=== PATIENT | male | born 1935 | race American Indian/Alaskan Native ===

== ENCOUNTER 2016-12-30 14:11 | Inpatient (IN) | payer MEDICARE, MEDICAID, OTHER ==
[2016-12-30] MEDS ORDERED: Polyethylene Glycol 3350 Powder 17 GM Packet PO PRN (14:41)
[2016-12-30] MEDS ORDERED: Acetaminophen 325 MG Tab PO PRN (14:41)
[2016-12-30] MEDS ORDERED: Ondansetron 4 MG/2 ML SDV IVPUSH PRN (14:41)
[2016-12-30] MEDS: Levofloxacin/Dextrose 5%-Water 500 MG in Premix Bag 1 BAG IV SCH (15:51)
[2016-12-30] MEDS: Sodium Chloride 0.9% 1,000 ML IV SCH (15:52)
--- NOTE | 2016-12-30 16:01 | PCM.HP ---
H&P History of Present Illness - General Date of Service: 12/30/16 Admit Problem/Dx: Admission Diagnosis/Problem Admission Diagnosis/Problem UTI, Urinary tract infectious disease Source of Information: Patient, Provider (Dr. Kennedy) - History of Present Illness Initial Comments - Free Text/Narative: 81-year-old male was the best medical history of diabetes mellitus type 2, hyperlipidemia, chronic kidney disease stage IV, lower extremity edema, cataract , anemia, cardiomyopathy, essential hypertension, also arthritis, diabetic peripheral neuropathy of the feet, hypothyroidism, presented as a direct admission from [facility] clinic in [place], [place]. Dr. Kennedy called me and reported to me that patient has been getting weak for the last 2 weeks with multiple clinic visits and today was found to have P urea and WBC of 18,000, sodium 124. patient is poor historian and he denies any symptoms stating that he feels okay. However his daughter reported that for the last 2 weeks he has been more sleepy than usual and more tired. He has been urinating more often but not complaining of dysuria or abdominal pain. She reported chronic cough. She denies nausea, vomiting, chest pain, shortness breath, diarrhea. She stated that when they got him out of bed yesterday they found maggots in his bed and they don't know where it came from. Chest x-ray at [facility] clinic reported nodule versus mass in the left upper lobe. UA on 12/30/69: Large urine blood, large leukocyte esterase. Laboratory workup on 12/29/69 adela: . Total bilirubin 0.60. Alkaline phosphatase because 121. WBC 18.4 with left shift hemoglobin 13.1. Platelet 415. Blood glucose 374. ESR 28. Creatinine 2.4. Estimated GFR 28. Sodium 124. Potassium 3.8. Calcium 8.6. Albumin 3.2. - Related Data Allergies/Adverse Reactions: Allergies Allergy/AdvReac Type Severity Reaction Status Date / Time No Known Allergies Allergy Verified 12/30/16 14:37 Home Medications: Home Meds Aspirin [Ecotrin] 81 mg PO DAILY 06/07/13 [History] Fenofibrate,Micronized [Fenofibrate] 1 cap PO DAILY 06/07/13 [History] Pioglitazone [Actos] 30 mg PO DAILY 06/07/13 [History] Simvastatin [Zocor] 20 mg PO BEDTIME 06/07/13 [History] Diclofenac Sodium [Voltaren 1% Gel] 2 gm TOP QID 12/30/16 [History] Insulin Detemir [Levemir] 25 unit SUBCUT BEDTIME 12/30/16 [History] Lisinopril 10 mg PO DAILY 12/30/16 [History] glipiZIDE [Glucotrol XL] 5 mg PO DAILY 12/30/16 [History] metFORMIN [Glucophage] 500 mg PO DAILY 12/30/16 [History] Past Medical History Cardiovascular History: Reports: High Cholesterol, Hypertension Respiratory History: Reports: COPD Endocrine/Metabolic History: Reports: Diabetes, Type II - Infectious Disease History Infectious Disease History: Reports: Chicken Pox, Shingles Social & Family History - Family History Family Medical History: Noncontributory - Tobacco Use Smoking Status *Q: Former Smoker Used Tobacco, but Quit: Yes Month Tobacco Last Used: unknown - Caffeine Use Caffeine Use: Reports: Coffee - Alcohol Use Days Per Week of Alcohol Use: 0 - Recreational Drug Use Recreational Drug Use: No H&P Review of Systems - Review of Systems: Review Of Systems: See Below General: Denies: Fever, Weight Loss, Weight Gain HEENT: Reports: No Symptoms Pulmonary: Reports: No Symptoms Cardiovascular: Reports: No Symptoms Gastrointestinal: Reports: No Symptoms Genitourinary: Denies: Dysuria, Hematuria, Flank Pain Musculoskeletal: Reports: No Symptoms Skin: Reports: No Symptoms Psychiatric: Reports: No Symptoms Neurological: Reports: No Symptoms Hematologic/Lymphatic: Reports: No Symptoms Immunologic: Reports: No Symptoms Exam - Exam Exam: See Below - Vital Signs Vital Signs: Last Vital Signs Temp 36.1 C 12/30/16 14:41 Pulse 102 H 12/30/16 14:41 Resp 20 12/30/16 14:41 BP 107/64 12/30/16 14:41 Pulse Ox 99 12/30/16 14:41 Weight: 89.363 kg - Exam General: Alert, Oriented (to person and place only), Cooperative. No: Moderate Distress, Severe Distress, Sedated, Lethargic, Obtunded HEENT: Conjunctiva Clear, EACs Clear, EOMI, Hearing Intact, Mucosa Moist & [place] , Nares Patent, Normal Nasal Septum, Posterior Pharynx Clear, Pupils Equal, Pupils Reactive, TMs Clear Neck: Supple, Trachea Midline. No: JVD Lungs: Clear to Auscultation, Normal Respiratory Effort. No: Decreased Breath Sounds, Crackles, Rales, Wheezing Cardiovascular: Regular Rate, Regular Rhythm GI/Abdominal Exam: Normal Bowel Sounds, Soft, Non-Tender, No Organomegaly, No Distention, No Abnormal Bruit, No Mass. No: Distended, Guarding, Rigid, Rebound (Male) Exam: No Hernia, Normal Inspection. No: Scrotal Swelling, Urethral Discharge Rectal (Males) Exam: Deferred Back Exam: Normal Inspection, Full Range of Motion. No: CVA Tenderness (L), CVA Tenderness (R) Extremities: Normal Inspection, Normal Range of Motion, Non-Tender, No Pedal Edema, Normal Capillary Refill Skin: Warm, Dry, Intact. No: Wound, Incision, Decubitis Neurological: Cranial Nerves Intact Neuro Extensive - Mental Status: Alert, Normal Mood/Affect Neuro Extensive - Motor, Sensory, Reflexes: CN II-XII Intact Psychiatric: Alert *Q Meaningful Use (ADM) - VTE *Q VTE Criteria *Q: - Stroke *Q Stroke Criteria *Q: - AMI *Q AMI Criteria *Q: - Problem List (1) Sepsis SNOMED Code(s): 48632763 ICD Code: A41.9 - SEPSIS, UNSPECIFIED ORGANISM Status: Acute Priority: High Current Visit: Yes (2) Complicated UTI (urinary tract infection) SNOMED Code(s): 18329279 ICD Code: N39.0 - URINARY TRACT INFECTION, SITE NOT SPECIFIED Status: Acute Priority: High Current Visit: Yes (3) Diabetes mellitus type 2 in obese SNOMED Code(s): 25937928 ICD Code: E11.69 - TYPE 2 DIABETES MELLITUS WITH OTHER SPECIFIED COMPLICATION ; E66.9 - OBESITY, UNSPECIFIED Status: Chronic Current Visit: Yes (4) HTN (hypertension) SNOMED Code(s): 82432652 ICD Code: I10 - ESSENTIAL (PRIMARY) HYPERTENSION Status: Chronic Current Visit: Yes (5) CKD (chronic kidney disease) stage 4, GFR 15-29 ml/min SNOMED Code(s): 928576845 ICD Code: N18.4 - CHRONIC KIDNEY DISEASE, STAGE 4 (SEVERE) Status: Chronic Current Visit: Yes (6) Hyponatremia SNOMED Code(s): 03369867 ICD Code: E87.1 - HYPO-OSMOLALITY AND HYPONATREMIA Status: Acute Priority : High Current Visit: Yes (7) Hyperlipidemia SNOMED Code(s): 76683110 ICD Code: E78.5 - HYPERLIPIDEMIA, UNSPECIFIED Status: Chronic Current Visit: Yes (8) Peripheral neuropathy SNOMED Code(s): 617776109 ICD Code: G62.9 - POLYNEUROPATHY, UNSPECIFIED Status: Chronic Current Visit: Yes (9) Hypothyroidism SNOMED Code(s): 85356959 ICD Code: E03.9 - HYPOTHYROIDISM, UNSPECIFIED Status: Chronic Current Visit: Yes Problem List Initiated/Reviewed/Updated: Yes Orders Last 24hrs: Active Orders 24 hr Category Date Time Status Patient Status [ADT] Routine ADT 12/30/16 14:41 Active Antiembolic Devices [RC] PER UNIT ROUTINE Care 12/30/16 14:45 Active Blood Glucose Check, Bedside [RC] QIDACANDBED Care 12/30/16 14:41 Active Height and Weight [RC] DAILY Care 12/30/16 14:41 Active Intake and Output [RC] Q6H Care 12/30/16 14:43 Active May Shower [RC] ASDIRECTED Care 12/30/16 14:41 Active Notify Provider Vital Signs [RC] ASDIRECTED Care 12/30/16 14:44 Active Oxygen Therapy [RC] PRN Care 12/30/16 14:41 Active Up ad Manisha [RC] ASDIRECTED Care 12/30/16 14:41 Active VTE/DVT Education [RC] PER UNIT ROUTINE Care 12/30/16 14:41 Active Vital Signs [RC] Q4H Care 12/30/16 14:41 Active OT Evaluation and Treatment [CONS] Routine Cons 12/30/16 14:41 Active PT Evaluation and Treatment [CONS] Routine Cons 12/30/16 14:41 Active Consistent Carbohydrate Diet [DIET] Diet 12/30/16 Breakfast Active C-REACTIVE PROTEIN [CHEM] Routine Lab 12/30/16 13:10 Received CBC WITH AUTO DIFF [HEME] AM Lab 12/31/16 05:11 Ordered COMPREHENSIVE METABOLIC PN,CMP [CHEM] AM Lab 12/31/16 05:11 Ordered CRP [C-REACTIVE PROTEIN] [CHEM] AM Lab 12/31/16 05:11 Ordered CULTURE BLOOD [BC] Stat Lab 12/30/16 15:05 Received CULTURE BLOOD [BC] Stat Lab 12/30/16 15:10 Received CULTURE URINE [RM] Stat Lab 12/30/16 14:41 Uncollected MAGNESIUM [CHEM] AM Lab 12/31/16 05:11 Ordered PHOSPHORUS [CHEM] AM Lab 12/31/16 05:11 Ordered Acetaminophen [Tylenol] Med 12/30/16 14:41 Active 650 mg PO Q4H PRN Aspirin [Halfprin] Med 12/31/16 09:00 Active 81 mg PO DAILY Fenofibrate,Micronized [Fenofibrate] Med 12/31/16 09:00 Pending 1 cap PO DAILY Heparin Sodium Med 12/30/16 21:00 Active 5,000 units SUBCUT BID Insulin Aspart [NovoLOG] Med 12/30/16 17:00 Active See Protocol SUBCUT QIDACANDBED Insulin Detemir [Levemir] Med 12/30/16 21:00 Active 25 unit SUBCUT BEDTIME Levofloxacin/Dextrose 5%-Water [Levaquin in D5W 500 MG/ Med 12/30/16 16:00 Active 100 ML] 500 mg Premix Bag 1 bag IV Q24H Lisinopril [Prinivil] Med 12/31/16 09:00 Active 10 mg PO DAILY Ondansetron [Zofran] Med 12/30/16 14:41 Active 4 mg IVPUSH Q6H PRN Pioglitazone [Actos] Med 12/31/16 09:00 Active 30 mg PO DAILY Polyethylene Glycol 3350 [MiraLAX] Med 12/30/16 14:41 Active 17 gm PO DAILY PRN Simvastatin [Zocor] Med 12/30/16 21:00 Active 20 mg PO BEDTIME Sodium Chloride 0.9% [Normal Saline] 1,000 ml Med 12/30/16 14:45 Active IV ASDIRECTED Antiembolic Hose [OM.PC] Per Unit Routine Oth 12/30/16 14:45 Ordered Blood Culture x2 Reflex Set [OM.PC] Stat Oth 12/30/16 14:41 Ordered Medication Orders Acetaminophen (Tylenol) 650 mg PO Q4H PRN PRN Reason: Pain (Mild 1-3)/fever Aspirin (Halfprin) 81 mg PO DAILY JEY Heparin Sodium (Porcine) (Heparin Sodium) 5,000 units SUBCUT BID JEY Sodium Chloride (Normal Saline) 1,000 mls @ 125 mls/hr IV ASDIRECTED JEY Levofloxacin/Dextrose 500 mg/ (Premix) 100 mls @ 100 mls/hr IV Q24H JEY Insulin Aspart (Novolog) 0 unit SUBCUT QIDACANDBED JEY PRN Reason: Protocol Insulin Detemir (Levemir) 25 unit SUBCUT BEDTIME JEY Lisinopril (Prinivil) 10 mg PO DAILY JEY Non-Formulary Medication (Fenofibrate,Micronized [Fenofibrate]) 1 cap PO DAILY JEY Ondansetron HCl (Zofran) 4 mg IVPUSH Q6H PRN PRN Reason: Nausea/Vomiting Pioglitazone HCl (Actos) 30 mg PO DAILY JEY Polyethylene Glycol (Miralax) 17 gm PO DAILY PRN PRN Reason: Constipation Simvastatin (Zocor) 20 mg PO BEDTIME JEY Assessment/Plan Comment:: Assessment and plan Sepsis, source of infection is possibly urinary tract Elevated WBC and rapid heart rate -ordered blood and urine cx start levaquin IV -IVF infusion of NS at 125 cc/h UTI complicated plan as above Hyponatremia treat sepsis IVF Generalized weakness PT adn OP eval and treamtment Diabetes mellitus type 2 hold glipizide and metformin due to kidney disease continue pioglitazone Continue Levemir -sliding scale insulin, high dose protocol Essential Hypertension Continue lisinopril Chronic kidney disease creatinine at baseline avoid nephrotoxic meds Hypothyroidism continue lenvothyroxin Hyperlipidemia continue simvastatin Heparin for DVT prophylaxis He is full code
[2016-12-30] MEDS: Insulin Aspart 100 Units/ML 3 ML Pen SUBCUT SCH ×2 (17:30→21:15)
[2016-12-30] MEDS ORDERED: Insulin Detemir 100 Units/ML 3 ML Pen SUBCUT SCH (21:00)
[2016-12-30] MEDS: Heparin Sodium 5,000 Units/ML Vial SUBCUT SCH (21:13)
[2016-12-30] MEDS: Simvastatin 10 MG Tab PO SCH (21:15)
[2016-12-31] MEDS: Sodium Chloride 0.9% 1,000 ML IV SCH ×2 (01:07→08:48)
[2016-12-31] MEDS: Insulin Aspart 100 Units/ML 3 ML Pen SUBCUT SCH ×4 (08:01→21:19)
[2016-12-31] MEDS: Lisinopril 10 MG Tab PO SCH (08:46)
[2016-12-31] MEDS: Aspirin 81 MG Tab.EC PO SCH (08:46)
[2016-12-31] MEDS: Heparin Sodium 5,000 Units/ML Vial SUBCUT SCH ×2 (08:48→20:41)
[2016-12-31] MEDS ORDERED: FENOFIBRATE MICRONIZED PO SCH (09:00)
--- NOTE | 2016-12-31 13:13 | PCM.PN ---
- General Info Date of Service: 12/31/16 Admission Dx/Problem (Free Text): Admission Diagnosis/Problem Admission Diagnosis/Problem UTI, Urinary tract infectious disease Subjective Update: Patient stated that his feelings better. He has no complaints. He denies fever, chills, nausea, vomiting, shortness breath, chest pain, abdominal pain, dysuria , urinary frequency. Nurse reported that patient has been incontinent. - Patient Data Vitals - Most Recent: Last Vital Signs Temp 36.6 C 12/31/16 11:23 Pulse 88 12/31/16 11:23 Resp 20 12/31/16 11:23 BP 79/39 L 12/31/16 11:23 Pulse Ox 94 L 12/31/16 11:23 Weight - Most Recent: 90.265 kg I&O - Last 24 Hours: Intake & Output 12/30/16 12/31/16 12/31/16 22:59 06:59 14:59 Intake Total 896 1195 2427 Balance 896 1195 2427 Lab Results Last 24 Hours: Laboratory Results - last 24 hr 12/30/16 12/30/16 12/30/16 Range/Units 13:10 16:59 20:48 WBC (5.0-10.0) 10^3/uL RBC (4.6-6.2) 10^6/uL Hgb (14.0-18.0) g/dL Hct (40.0-54.0) % MCV (80-100) fL MCH (27.0-34.0) pg MCHC (33.0-35.0) g/dL Plt Count (150-450) 10^3/uL Neut % (Auto) (42.2-75.2) % Lymph % (Auto) (20.5-50.1) % [place] % (Auto) (2-8) % Eos % (Auto) (1.0-3.0) % Baso % (Auto) (0.0-1.0) % Sodium (135-145) mmol/L Potassium (3.6-5.0) mmol/L Chloride (101-111) mmol/L Carbon Dioxide (21.0-31.0) mmol/L Anion Gap BUN (7-18) mg/dL Creatinine (0.6-1.3) mg/dL Est Cr Clr Drug Dosing mL/min Estimated GFR (MDRD) BUN/Creatinine Ratio Glucose (74-105) mg/dL POC Glucose 322 H 197 H (83-110) mg/dl Calcium (8.4-10.2) mg/dl Phosphorus (2.5-4.6) mg/dL Magnesium (1.8-2.5) mg/dL Total Bilirubin (0.2-1.0) mg/dL AST (10-42) IU/L ALT (10-60) IU/L Alkaline Phosphatase (42-121) IU/L C-Reactive Protein 12.9 H (0.0-1.3) mg/dL Total Protein (6.7-8.2) g/dl Albumin (3.2-5.5) g/dl Globulin Albumin/Globulin Ratio 12/31/16 12/31/16 12/31/16 Range/Units 06:15 06:15 06:15 WBC 12.0 H (5.0-10.0) 10^3/uL RBC 4.15 L (4.6-6.2) 10^6/uL Hgb 11.8 L (14.0-18.0) g/dL Hct 35.6 L (40.0-54.0) % MCV 85.8 (80-100) fL MCH 28.4 (27.0-34.0) pg MCHC 33.1 (33.0-35.0) g/dL Plt Count 387 (150-450) 10^3/uL Neut % (Auto) 75.5 H (42.2-75.2) % Lymph % (Auto) 18.8 L (20.5-50.1) % [place] % (Auto) 5.6 (2-8) % Eos % (Auto) 0.1 L (1.0-3.0) % Baso % (Auto) 0.0 (0.0-1.0) % Sodium 130 L (135-145) mmol/L Potassium 3.9 (3.6-5.0) mmol/L Chloride 96 L (101-111) mmol/L Carbon Dioxide 21.0 (21.0-31.0) mmol/L Anion Gap 16.9 BUN 75 H (7-18) mg/dL Creatinine 2.5 H (0.6-1.3) mg/dL Est Cr Clr Drug Dosing 23.57 mL/min Estimated GFR (MDRD) 25 BUN/Creatinine Ratio 30.00 Glucose 188 H (74-105) mg/dL POC Glucose (83-110) mg/dl Calcium 8.2 L (8.4-10.2) mg/dl Phosphorus 3.4 (2.5-4.6) mg/dL Magnesium 1.8 (1.8-2.5) mg/dL Total Bilirubin 0.8 (0.2-1.0) mg/dL AST 13 (10-42) IU/L ALT 9 L (10-60) IU/L Alkaline Phosphatase 69 (42-121) IU/L C-Reactive Protein 9.9 H (0.0-1.3) mg/dL Total Protein 7.3 (6.7-8.2) g/dl Albumin 2.1 L (3.2-5.5) g/dl Globulin 5.2 Albumin/Globulin Ratio 0.40 12/31/16 12/31/16 Range/Units 07:34 10:55 WBC (5.0-10.0) 10^3/uL RBC (4.6-6.2) 10^6/uL Hgb (14.0-18.0) g/dL Hct (40.0-54.0) % MCV (80-100) fL MCH (27.0-34.0) pg MCHC (33.0-35.0) g/dL Plt Count (150-450) 10^3/uL Neut % (Auto) (42.2-75.2) % Lymph % (Auto) (20.5-50.1) % [place] % (Auto) (2-8) % Eos % (Auto) (1.0-3.0) % Baso % (Auto) (0.0-1.0) % Sodium (135-145) mmol/L Potassium (3.6-5.0) mmol/L Chloride (101-111) mmol/L Carbon Dioxide (21.0-31.0) mmol/L Anion Gap BUN (7-18) mg/dL Creatinine (0.6-1.3) mg/dL Est Cr Clr Drug Dosing mL/min Estimated GFR (MDRD) BUN/Creatinine Ratio Glucose (74-105) mg/dL POC Glucose 206 H 233 H (83-110) mg/dl Calcium (8.4-10.2) mg/dl Phosphorus (2.5-4.6) mg/dL Magnesium (1.8-2.5) mg/dL Total Bilirubin (0.2-1.0) mg/dL AST (10-42) IU/L ALT (10-60) IU/L Alkaline Phosphatase (42-121) IU/L C-Reactive Protein (0.0-1.3) mg/dL Total Protein (6.7-8.2) g/dl Albumin (3.2-5.5) g/dl Globulin Albumin/Globulin Ratio Med Orders - Current: Current Medications Acetaminophen (Tylenol) 650 mg PO Q4H PRN PRN Reason: Pain (Mild 1-3)/fever Aspirin (Halfprin) 81 mg PO DAILY [facility] Last Admin: 12/31/16 08:46 Dose: 81 mg Heparin Sodium (Porcine) (Heparin Sodium) 5,000 units SUBCUT BID [facility] Last Admin: 12/31/16 08:48 Dose: 5,000 units Levofloxacin/Dextrose 500 mg/ (Premix) 100 mls @ 100 mls/hr IV Q24H [facility] Last Admin: 12/30/16 15:51 Dose: 100 mls/hr Insulin Aspart (Novolog) 0 unit SUBCUT QIDACANDBED [facility] PRN Reason: Protocol Last Admin: 12/31/16 11:55 Dose: 6 units Insulin Detemir (Levemir) 25 unit SUBCUT BEDTIME [facility] Last Admin: 12/30/16 21:14 Dose: 25 units Lisinopril (Prinivil) 10 mg PO DAILY [facility] Last Admin: 12/31/16 08:46 Dose: 10 mg Non-Formulary Medication (Fenofibric Acid (Choline) [Fenofibric Acid]) 45 mg PO DAILY [facility] Ondansetron HCl (Zofran) 4 mg IVPUSH Q6H PRN PRN Reason: Nausea/Vomiting Pioglitazone HCl (Actos) 30 mg PO DAILY [facility] Last Admin: 12/31/16 08:48 Dose: 30 mg Polyethylene Glycol (Miralax) 17 gm PO DAILY PRN PRN Reason: Constipation Simvastatin (Zocor) 20 mg PO BEDTIME [facility] Last Admin: 12/30/16 21:15 Dose: 20 mg Discontinued Medications Sodium Chloride (Normal Saline) 1,000 mls @ 125 mls/hr IV ASDIRECTED JEY Stop: 12/31/16 10:00 Last Infusion: 12/31/16 11:48 Dose: 125 mls/hr Non-Formulary Medication (Fenofibrate,Micronized [Fenofibrate]) 1 cap PO DAILY JEY - Exam General: Alert, Oriented (To person and place. He knows the month but not the year), Cooperative. No: No Acute Distress, Mild Distress, Moderate Distress, Severe Distress, Sedated, Lethargic, Obtunded HEENT: Pupils Equal, Pupils Reactive, EOMI, Mucous Membr. Moist/[place] Neck: Supple, Trachea Midline, No JVD Lungs: Clear to Auscultation, Normal Respiratory Effort Cardiovascular: Regular Rate, Regular Rhythm GI/Abdominal Exam: Normal Bowel Sounds, Soft, Non-Tender, No Organomegaly, No Distention, No Abnormal Bruit, No Mass, Pelvis Stable (Male) Exam: Deferred Back Exam: Normal Inspection, Full Range of Motion Extremities: Normal Inspection, Normal Range of Motion, Non-Tender, No Pedal Edema, Normal Capillary Refill Neurological: No New Focal Deficit Psy/Mental Status: Alert, Normal Affect, Normal Mood - Problem List & Annotations (1) Sepsis SNOMED Code(s): 84324979 Code(s): A41.9 - SEPSIS, UNSPECIFIED ORGANISM Status: Acute Priority: High Current Visit: Yes (2) Complicated UTI (urinary tract infection) SNOMED Code(s): 04615783 Code(s): N39.0 - URINARY TRACT INFECTION, SITE NOT SPECIFIED Status: Acute Priority: High Current Visit: Yes (3) Diabetes mellitus type 2 in obese SNOMED Code(s): 91249935 Code(s): E11.69 - TYPE 2 DIABETES MELLITUS WITH OTHER SPECIFIED COMPLICATION ; E66.9 - OBESITY, UNSPECIFIED Status: Chronic Current Visit: Yes (4) HTN (hypertension) SNOMED Code(s): 35633256 Code(s): I10 - ESSENTIAL (PRIMARY) HYPERTENSION Status: Chronic Current Visit: Yes (5) CKD (chronic kidney disease) stage 4, GFR 15-29 ml/min SNOMED Code(s): 226774757 Code(s): N18.4 - CHRONIC KIDNEY DISEASE, STAGE 4 (SEVERE) Status: Chronic Current Visit: Yes (6) Hyponatremia SNOMED Code(s): 71682174 Code(s): E87.1 - HYPO-OSMOLALITY AND HYPONATREMIA Status: Acute Priority : High Current Visit: Yes (7) Hyperlipidemia SNOMED Code(s): 80015555 Code(s): E78.5 - HYPERLIPIDEMIA, UNSPECIFIED Status: Chronic Current Visit: Yes (8) Peripheral neuropathy SNOMED Code(s): 247389001 Code(s): G62.9 - POLYNEUROPATHY, UNSPECIFIED Status: Chronic Current Visit: Yes (9) Hypothyroidism SNOMED Code(s): 30318507 Code(s): E03.9 - HYPOTHYROIDISM, UNSPECIFIED Status: Chronic Current Visit: Yes - Problem List Review Problem List Initiated/Reviewed/Updated: Yes - My Orders Last 24 Hours: My Active Orders 12/30/16 14:41 Patient Status [ADT] Routine Blood Glucose Check, Bedside [RC] QIDACANDBED Height and Weight [RC] 0600 May Shower [RC] ASDIRECTED Oxygen Therapy [RC] PRN Up ad Manisha [RC] ASDIRECTED VTE/DVT Education [RC] 08,20 Vital Signs [RC] Q4H OT Evaluation and Treatment [CONS] Routine PT Evaluation and Treatment [CONS] Routine CULTURE URINE [RM] Stat Acetaminophen [Tylenol] 650 mg PO Q4H PRN Ondansetron [Zofran] 4 mg IVPUSH Q6H PRN Polyethylene Glycol 3350 [MiraLAX] 17 gm PO DAILY PRN Blood Culture x2 Reflex Set [OM.PC] Stat 12/30/16 14:43 Intake and Output [RC] Q6H 12/30/16 14:44 Notify Provider Vital Signs [RC] ,12/30/16 14:45 Antiembolic Devices [RC] PER UNIT ROUTINE Antiembolic Hose [OM.PC] Per Unit Routine 12/30/16 15:05 CULTURE BLOOD [BC] Stat 12/30/16 15:10 CULTURE BLOOD [BC] Stat 12/30/16 16:00 Levofloxacin/Dextrose 5%-Water [Levaquin in D5W 500 MG/100 ML] 500 mg Premix Bag 1 bag IV Q24H 12/30/16 17:00 Insulin Aspart [NovoLOG] See Protocol SUBCUT QIDACANDBED 12/30/16 21:00 Heparin Sodium 5,000 units SUBCUT BID Insulin Detemir [Levemir] 25 unit SUBCUT BEDTIME Simvastatin [Zocor] 20 mg PO BEDTIME 12/31/16 06:00 Chest wo Cont [CT] Routine 12/31/16 09:00 Aspirin [Halfprin] 81 mg PO DAILY Fenofibrate,Micronized [Fenofibrate] 1 cap PO DAILY Lisinopril [Prinivil] 10 mg PO DAILY Pioglitazone [Actos] 30 mg PO DAILY 12/31/16 13:05 Code Status [Resuscitation Status] Routine 01/01/17 05:11 BASIC METABOLIC PANEL,BMP [CHEM] AM CBC WITH AUTO DIFF [HEME] AM CRP [C-REACTIVE PROTEIN] [CHEM] AM 01/01/17 09:00 Fenofibric Acid (Choline) [Fenofibric Acid] 45 mg PO DAILY - Plan Plan:: Assessment and plan Sepsis, source of infection is possibly urinary tract Elevated WBC and rapid heart rate -ordered blood and urine cx -Continue levaquin IV -He received IV infusion of NS, total of 2 L UTI complicated plan as above Hyponatremia -Improving treat sepsis Generalized weakness PT adn OP eval and treamtment Diabetes mellitus type 2 hold glipizide and metformin due to kidney disease continue pioglitazone -Increase Levemir from 25 units to 28 units twice a day -sliding scale insulin, high dose protocol Essential Hypertension Continue lisinopril Chronic kidney disease creatinine at baseline avoid nephrotoxic meds Hypothyroidism continue lenvothyroxin Hyperlipidemia continue simvastatin Heparin for DVT prophylaxis He is full code
[2016-12-31] MEDS ORDERED: FENOFIBRIC ACID 45 MG PO SCH (14:00)
[2016-12-31] MEDS: Sodium Chloride 0.9% 10 ML Syringe FLUSH PRN (16:09)
[2016-12-31] MEDS: Levofloxacin/Dextrose 5%-Water 500 MG in Premix Bag 1 BAG IV SCH (16:09)
[2016-12-31] MEDS: Simvastatin 10 MG Tab PO SCH (20:41)
[2016-12-31] MEDS: Insulin Detemir 100 Units/ML 3 ML Pen SUBCUT SCH (21:17)
[2017-01-01] MEDS: Insulin Aspart 100 Units/ML 3 ML Pen SUBCUT SCH ×4 (08:38→20:55)
[2017-01-01] MEDS: Lisinopril 10 MG Tab PO SCH (08:40)
[2017-01-01] MEDS: Aspirin 81 MG Tab.EC PO SCH (08:40)
[2017-01-01] MEDS: Heparin Sodium 5,000 Units/ML Vial SUBCUT SCH ×2 (08:42→20:48)
--- NOTE | 2017-01-01 11:09 | PCM.PN ---
- General Info Date of Service: 01/01/17 Admission Dx/Problem (Free Text): Admission Diagnosis/Problem Admission Diagnosis/Problem UTI, Urinary tract infectious disease Subjective Update: Patient stated that his feelings better. He has no complaints. He denies fever, chills, nausea, vomiting, shortness breath, chest pain, abdominal pain, dysuria , urinary frequency. Nurse reported that patient has been incontinent. - Review of Systems General: Reports: No Symptoms - Patient Data Vitals - Most Recent: Last Vital Signs Temp 36.5 C 01/01/17 08:00 Pulse 97 01/01/17 08:00 Resp 28 H 01/01/17 08:00 BP 115/46 L 01/01/17 08:40 Pulse Ox 97 01/01/17 08:00 Weight - Most Recent: 90.446 kg I&O - Last 24 Hours: Intake & Output 12/31/16 01/01/17 01/01/17 22:59 06:59 14:59 Intake Total 695 300 240 Output Total 150 200 Balance 695 150 40 Lab Results Last 24 Hours: Laboratory Results - last 24 hr 12/31/16 12/31/16 12/31/16 Range/Units 10:55 16:44 20:49 WBC (5.0-10.0) 10^3/uL RBC (4.6-6.2) 10^6/uL Hgb (14.0-18.0) g/dL Hct (40.0-54.0) % MCV (80-100) fL MCH (27.0-34.0) pg MCHC (33.0-35.0) g/dL Plt Count (150-450) 10^3/uL Neut % (Auto) (42.2-75.2) % Lymph % (Auto) (20.5-50.1) % [place] % (Auto) (2-8) % Eos % (Auto) (1.0-3.0) % Baso % (Auto) (0.0-1.0) % Sodium (135-145) mmol/L Potassium (3.6-5.0) mmol/L Chloride (101-111) mmol/L Carbon Dioxide (21.0-31.0) mmol/L Anion Gap BUN (7-18) mg/dL Creatinine (0.6-1.3) mg/dL Est Cr Clr Drug Dosing mL/min Estimated GFR (MDRD) Glucose (74-105) mg/dL POC Glucose 233 H 263 H 207 H (83-110) mg/dl Calcium (8.4-10.2) mg/dl C-Reactive Protein (0.0-1.3) mg/dL 01/01/17 01/01/17 01/01/17 Range/Units 06:25 06:25 06:25 WBC 10.8 H (5.0-10.0) 10^3/uL RBC 4.00 L (4.6-6.2) 10^6/uL Hgb 11.4 L (14.0-18.0) g/dL Hct 35.0 L (40.0-54.0) % MCV 87.5 (80-100) fL MCH 28.5 (27.0-34.0) pg MCHC 32.6 L (33.0-35.0) g/dL Plt Count 417 (150-450) 10^3/uL Neut % (Auto) 66.7 (42.2-75.2) % Lymph % (Auto) 25.5 (20.5-50.1) % [place] % (Auto) 7.6 (2-8) % Eos % (Auto) 0.1 L (1.0-3.0) % Baso % (Auto) 0.1 (0.0-1.0) % Sodium 132 L (135-145) mmol/L Potassium 4.1 (3.6-5.0) mmol/L Chloride 100 L (101-111) mmol/L Carbon Dioxide 23.0 (21.0-31.0) mmol/L Anion Gap 13.1 BUN 63 H (7-18) mg/dL Creatinine 2.2 H (0.6-1.3) mg/dL Est Cr Clr Drug Dosing 26.78 mL/min Estimated GFR (MDRD) 29 Glucose 184 H (74-105) mg/dL POC Glucose (83-110) mg/dl Calcium 8.3 L (8.4-10.2) mg/dl C-Reactive Protein 8.1 H (0.0-1.3) mg/dL 01/01/17 Range/Units 07:45 WBC (5.0-10.0) 10^3/uL RBC (4.6-6.2) 10^6/uL Hgb (14.0-18.0) g/dL Hct (40.0-54.0) % MCV (80-100) fL MCH (27.0-34.0) pg MCHC (33.0-35.0) g/dL Plt Count (150-450) 10^3/uL Neut % (Auto) (42.2-75.2) % Lymph % (Auto) (20.5-50.1) % [place] % (Auto) (2-8) % Eos % (Auto) (1.0-3.0) % Baso % (Auto) (0.0-1.0) % Sodium (135-145) mmol/L Potassium (3.6-5.0) mmol/L Chloride (101-111) mmol/L Carbon Dioxide (21.0-31.0) mmol/L Anion Gap BUN (7-18) mg/dL Creatinine (0.6-1.3) mg/dL Est Cr Clr Drug Dosing mL/min Estimated GFR (MDRD) Glucose (74-105) mg/dL POC Glucose 152 H (83-110) mg/dl Calcium (8.4-10.2) mg/dl C-Reactive Protein (0.0-1.3) mg/dL [place] Results Last 24 Hours: Microbiology 12/30/16 15:10 Aerobic Blood Culture - Preliminary Blood - Venous - Lab Draw NO GROWTH AFTER 1 DAY Anaerobic Blood Culture - Preliminary NO GROWTH AFTER 1 DAY 12/30/16 15:05 Aerobic Blood Culture - Preliminary Blood - Venous NO GROWTH AFTER 1 DAY Anaerobic Blood Culture - Preliminary NO GROWTH AFTER 1 DAY Med Orders - Current: Current Medications Acetaminophen (Tylenol) 650 mg PO Q4H PRN PRN Reason: Pain (Mild 1-3)/fever Aspirin (Halfprin) 81 mg PO DAILY [facility] Last Admin: 01/01/17 08:40 Dose: 81 mg Heparin Sodium (Porcine) (Heparin Sodium) 5,000 units SUBCUT BID [facility] Last Admin: 01/01/17 08:42 Dose: 5,000 units Levofloxacin/Dextrose 500 mg/ (Premix) 100 mls @ 100 mls/hr IV Q24H [facility] Last Infusion: 12/31/16 17:08 Dose: Infused Insulin Aspart (Novolog) 0 unit SUBCUT QIDACANDBED [facility] PRN Reason: Protocol Last Admin: 01/01/17 08:38 Dose: 3 units Insulin Detemir (Levemir) 28 unit SUBCUT BEDTIME [facility] Last Admin: 12/31/16 21:17 Dose: 28 units Lisinopril (Prinivil) 10 mg PO DAILY [facility] Last Admin: 01/01/17 08:40 Dose: 10 mg Ondansetron HCl (Zofran) 4 mg IVPUSH Q6H PRN PRN Reason: Nausea/Vomiting Pioglitazone HCl (Actos) 30 mg PO DAILY [facility] Last Admin: 01/01/17 08:41 Dose: 30 mg Polyethylene Glycol (Miralax) 17 gm PO DAILY PRN PRN Reason: Constipation Simvastatin (Zocor) 20 mg PO BEDTIME [facility] Last Admin: 12/31/16 20:41 Dose: 20 mg Sodium Chloride (Saline Flush) 10 ml FLUSH ASDIRECTED PRN PRN Reason: Keep Vein Open Last Admin: 12/31/16 16:09 Dose: 10 ml Discontinued Medications Sodium Chloride (Normal Saline) 1,000 mls @ 125 mls/hr IV ASDIRECTED [facility] Stop: 12/31/16 10:00 Last Infusion: 12/31/16 11:48 Dose: 125 mls/hr Insulin Detemir (Levemir) 25 unit SUBCUT BEDTIME [facility] Last Admin: 12/30/16 21:14 Dose: 25 units Non-Formulary Medication (Fenofibrate,Micronized [Fenofibrate]) 1 cap PO DAILY [facility] Last Admin: 12/31/16 13:45 Dose: Not Given Fenofibric Acid ( Choline) [Fenofibric Acid] 45 MgOwn Med 45 mg PO DAILY [facility] Last Admin: 12/31/16 14:11 Dose: 45 mg - Exam General: Alert, Oriented, Cooperative. No: No Acute Distress, Mild Distress, Moderate Distress, Severe Distress, Sedated, Lethargic, Obtunded HEENT: Pupils Equal, Pupils Reactive, EOMI, Mucous Membr. Moist/[place] Neck: Supple, Trachea Midline, No JVD Lungs: Clear to Auscultation, Normal Respiratory Effort Cardiovascular: Regular Rate, Regular Rhythm GI/Abdominal Exam: Normal Bowel Sounds, Soft, Non-Tender, No Organomegaly, No Distention, No Abnormal Bruit, No Mass (Male) Exam: Deferred Back Exam: Normal Inspection, Full Range of Motion. No: CVA Tenderness (L), CVA Tenderness (R) Extremities: Normal Inspection, Normal Range of Motion, Non-Tender, No Pedal Edema, Normal Capillary Refill Skin: Warm, Dry, Intact Neurological: No New Focal Deficit Psy/Mental Status: Alert (Person and place), Normal Affect - Problem List & Annotations (1) Sepsis SNOMED Code(s): 07339148 Code(s): A41.9 - SEPSIS, UNSPECIFIED ORGANISM Status: Acute Priority: High Current Visit: Yes (2) Complicated UTI (urinary tract infection) SNOMED Code(s): 37668432 Code(s): N39.0 - URINARY TRACT INFECTION, SITE NOT SPECIFIED Status: Acute Priority: High Current Visit: Yes (3) Diabetes mellitus type 2 in obese SNOMED Code(s): 27676742 Code(s): E11.69 - TYPE 2 DIABETES MELLITUS WITH OTHER SPECIFIED COMPLICATION ; E66.9 - OBESITY, UNSPECIFIED Status: Chronic Current Visit: Yes (4) HTN (hypertension) SNOMED Code(s): 31650167 Code(s): I10 - ESSENTIAL (PRIMARY) HYPERTENSION Status: Chronic Current Visit: Yes (5) CKD (chronic kidney disease) stage 4, GFR 15-29 ml/min SNOMED Code(s): 503411413 Code(s): N18.4 - CHRONIC KIDNEY DISEASE, STAGE 4 (SEVERE) Status: Chronic Current Visit: Yes (6) Hyponatremia SNOMED Code(s): 90102997 Code(s): E87.1 - HYPO-OSMOLALITY AND HYPONATREMIA Status: Acute Priority : High Current Visit: Yes (7) Hyperlipidemia SNOMED Code(s): 01688248 Code(s): E78.5 - HYPERLIPIDEMIA, UNSPECIFIED Status: Chronic Current Visit: Yes (8) Peripheral neuropathy SNOMED Code(s): 512888576 Code(s): G62.9 - POLYNEUROPATHY, UNSPECIFIED Status: Chronic Current Visit: Yes (9) Hypothyroidism SNOMED Code(s): 02197974 Code(s): E03.9 - HYPOTHYROIDISM, UNSPECIFIED Status: Chronic Current Visit: Yes - Problem List Review Problem List Initiated/Reviewed/Updated: Yes - My Orders Last 24 Hours: My Active Orders 12/31/16 13:05 Code Status [Resuscitation Status] Routine 12/31/16 13:10 CULTURE URINE [RM] Stat 12/31/16 13:45 Sodium Chloride 0.9% [Saline Flush] 10 ml FLUSH ASDIRECTED PRN Convert IV to Saline Lock [OM.PC] Routine 12/31/16 21:00 Insulin Detemir [Levemir] 28 unit SUBCUT BEDTIME - Plan Plan:: Assessment and plan Sepsis, source of infection is possibly urinary tract Elevated WBC and rapid heart rate He received IV infusion of NS, total of 2 L -blood cx is still negative -Continue levaquin IV -Awaiting to hear back from [facility] for [facility] culture. [facility] staff stated they expect to report come today or tomorrow but they are close tomorrow. We informed him to let us know as soon as they get any results. -Urine culture was collected here on 12/31/16, awaiting results UTI complicated -His urine is still looking purulent plan as above Hyponatremia -Improving treat sepsis Generalized weakness PT adn OP eval and treamtment Diabetes mellitus type 2 hold glipizide and metformin due to kidney disease continue pioglitazone Levemir was increased from 25 units to 28 units twice a day -sliding scale insulin, high dose protocol Essential Hypertension Continue lisinopril Chronic kidney disease creatinine at baseline avoid nephrotoxic meds Hypothyroidism continue lenvothyroxin Hyperlipidemia continue simvastatin Heparin for DVT prophylaxis He is full code Consider home health and patient gets discharged. At this time he still needs acute inpatient care.
[2017-01-01] MEDS: Sodium Chloride 0.9% 10 ML Syringe FLUSH PRN (12:29)
[2017-01-01] MEDS: Levofloxacin/Dextrose 5%-Water 500 MG in Premix Bag 1 BAG IV SCH (16:40)
[2017-01-01] MEDS: Simvastatin 10 MG Tab PO SCH (20:46)
[2017-01-01] MEDS: Insulin Detemir 100 Units/ML 3 ML Pen SUBCUT SCH (20:54)
[2017-01-02] MEDS: Heparin Sodium 5,000 Units/ML Vial SUBCUT SCH ×2 (08:46→21:35)
[2017-01-02] MEDS: Aspirin 81 MG Tab.EC PO SCH (08:48)
[2017-01-02] MEDS: Lisinopril 10 MG Tab PO SCH (08:48)
[2017-01-02] MEDS: Insulin Aspart 100 Units/ML 3 ML Pen SUBCUT SCH ×4 (08:50→21:34)
[2017-01-02] MEDS ORDERED: Sodium Chloride 0.9% 500 ML IV SCH (11:45)
--- NOTE | 2017-01-02 11:45 | PCM.PN ---
- General Info Date of Service: 01/02/17 Admission Dx/Problem (Free Text): Admission Diagnosis/Problem Admission Diagnosis/Problem UTI, Urinary tract infectious disease Subjective Update: Patient stated that his feelings better. He has no new complaints. He denies fever, chills, nausea, vomiting, shortness breath, chest pain, abdominal pain, dysuria, urinary frequency, dizzy, lightheaded, and symptoms or concern. Nurse reported that patient has been incontinent. - Patient Data Vitals - Most Recent: Last Vital Signs Temp 36.6 C 01/02/17 07:00 Pulse 77 01/02/17 07:00 Resp 20 01/02/17 07:00 BP 92/52 L 01/02/17 08:48 Pulse Ox 96 01/02/17 07:00 Weight - Most Recent: 95.254 kg I&O - Last 24 Hours: Intake & Output 01/01/17 01/02/17 01/02/17 22:59 06:59 14:59 Intake Total 640 200 420 Output Total 600 100 Balance 40 100 420 Lab Results Last 24 Hours: Laboratory Results - last 24 hr 01/01/17 01/01/17 01/02/17 Range/Units 16:48 20:39 05:30 WBC 10.9 H (5.0-10.0) 10^3/uL RBC 3.82 L (4.6-6.2) 10^6/uL Hgb 10.9 L (14.0-18.0) g/dL Hct 33.7 L (40.0-54.0) % MCV 88.2 (80-100) fL MCH 28.5 (27.0-34.0) pg MCHC 32.3 L (33.0-35.0) g/dL Plt Count 395 (150-450) 10^3/uL Neut % (Auto) 68.9 (42.2-75.2) % Lymph % (Auto) 24.3 (20.5-50.1) % [place] % (Auto) 6.6 (2-8) % Eos % (Auto) 0.1 L (1.0-3.0) % Baso % (Auto) 0.1 (0.0-1.0) % POC Glucose 223 H 203 H (83-110) mg/dl C-Reactive Protein (0.0-1.3) mg/dL B-Natriuretic Peptide (0-100) pg/ml 01/02/17 01/02/17 01/02/17 Range/Units 05:30 05:30 08:06 WBC (5.0-10.0) 10^3/uL RBC (4.6-6.2) 10^6/uL Hgb (14.0-18.0) g/dL Hct (40.0-54.0) % MCV (80-100) fL MCH (27.0-34.0) pg MCHC (33.0-35.0) g/dL Plt Count (150-450) 10^3/uL Neut % (Auto) (42.2-75.2) % Lymph % (Auto) (20.5-50.1) % [place] % (Auto) (2-8) % Eos % (Auto) (1.0-3.0) % Baso % (Auto) (0.0-1.0) % POC Glucose 251 H (83-110) mg/dl C-Reactive Protein 5.6 H (0.0-1.3) mg/dL B-Natriuretic Peptide 167 H (0-100) pg/ml [place] Results Last 24 Hours: Microbiology 12/31/16 13:10 Urine Culture - Preliminary Urine, Voided 12/30/16 15:10 Aerobic Blood Culture - Preliminary Blood - Venous - Lab Draw NO GROWTH AFTER 2 DAYS Anaerobic Blood Culture - Preliminary NO GROWTH AFTER 2 DAYS 12/30/16 15:05 Aerobic Blood Culture - Preliminary Blood - Venous NO GROWTH AFTER 2 DAYS Anaerobic Blood Culture - Preliminary NO GROWTH AFTER 2 DAYS Med Orders - Current: Current Medications Acetaminophen (Tylenol) 650 mg PO Q4H PRN PRN Reason: Pain (Mild 1-3)/fever Aspirin (Halfprin) 81 mg PO DAILY [facility] Last Admin: 01/02/17 08:48 Dose: 81 mg Heparin Sodium (Porcine) (Heparin Sodium) 5,000 units SUBCUT BID [facility] Last Admin: 01/02/17 08:46 Dose: 5,000 units Levofloxacin/Dextrose 500 mg/ (Premix) 100 mls @ 100 mls/hr IV Q24H [facility] Last Admin: 01/01/17 16:40 Dose: 100 mls/hr Sodium Chloride (Normal Saline) 500 mls @ 100 mls/hr IV ASDIRECTED [facility] Insulin Aspart (Novolog) 0 unit SUBCUT QIDACANDBED [facility] PRN Reason: Protocol Last Admin: 01/02/17 08:50 Dose: 9 units Insulin Detemir (Levemir) 28 unit SUBCUT BEDTIME [facility] Last Admin: 01/01/17 20:54 Dose: 28 units Lisinopril (Prinivil) 10 mg PO DAILY [facility] Last Admin: 01/02/17 08:48 Dose: 10 mg Ondansetron HCl (Zofran) 4 mg IVPUSH Q6H PRN PRN Reason: Nausea/Vomiting Pioglitazone HCl (Actos) 30 mg PO DAILY [facility] Last Admin: 01/02/17 08:47 Dose: 30 mg Polyethylene Glycol (Miralax) 17 gm PO DAILY PRN PRN Reason: Constipation Simvastatin (Zocor) 20 mg PO BEDTIME [facility] Last Admin: 01/01/17 20:46 Dose: 20 mg Sodium Chloride (Saline Flush) 10 ml FLUSH ASDIRECTED PRN PRN Reason: Keep Vein Open Last Admin: 01/01/17 12:29 Dose: 10 ml Discontinued Medications Sodium Chloride (Normal Saline) 1,000 mls @ 125 mls/hr IV ASDIRECTED [facility] Stop: 12/31/16 10:00 Last Infusion: 12/31/16 11:48 Dose: 125 mls/hr Insulin Detemir (Levemir) 25 unit SUBCUT BEDTIME [facility] Last Admin: 12/30/16 21:14 Dose: 25 units Non-Formulary Medication (Fenofibrate,Micronized [Fenofibrate]) 1 cap PO DAILY [facility] Last Admin: 12/31/16 13:45 Dose: Not Given Fenofibric Acid ( Choline) [Fenofibric Acid] 45 MgOwn Med 45 mg PO DAILY [facility] Last Admin: 12/31/16 14:11 Dose: 45 mg - Exam General: Alert, Oriented (To person and place), Cooperative, No Acute Distress. No: Moderate Distress, Severe Distress, Sedated, Lethargic, Obtunded HEENT: Pupils Equal, Pupils Reactive, EOMI, Mucous Membr. Moist/[place] Neck: Supple, Trachea Midline, No JVD Lungs: Clear to Auscultation, Normal Respiratory Effort Cardiovascular: Regular Rate, Regular Rhythm GI/Abdominal Exam: Normal Bowel Sounds, Soft, Non-Tender, No Organomegaly, No Distention, No Abnormal Bruit, No Mass (Male) Exam: Deferred Back Exam: Normal Inspection, Full Range of Motion. No: CVA Tenderness (L), CVA Tenderness (R) Extremities: Normal Inspection, Normal Range of Motion, Non-Tender, No Pedal Edema, Normal Capillary Refill Skin: Warm, Dry, Intact Neurological: No New Focal Deficit Psy/Mental Status: Alert, Normal Affect, Normal Mood - Problem List & Annotations (1) Sepsis SNOMED Code(s): 78689957 Code(s): A41.9 - SEPSIS, UNSPECIFIED ORGANISM Status: Acute Priority: High Current Visit: Yes (2) Complicated UTI (urinary tract infection) SNOMED Code(s): 57137056 Code(s): N39.0 - URINARY TRACT INFECTION, SITE NOT SPECIFIED Status: Acute Priority: High Current Visit: Yes (3) Diabetes mellitus type 2 in obese SNOMED Code(s): 71827146 Code(s): E11.69 - TYPE 2 DIABETES MELLITUS WITH OTHER SPECIFIED COMPLICATION ; E66.9 - OBESITY, UNSPECIFIED Status: Chronic Current Visit: Yes (4) HTN (hypertension) SNOMED Code(s): 21666778 Code(s): I10 - ESSENTIAL (PRIMARY) HYPERTENSION Status: Chronic Current Visit: Yes (5) CKD (chronic kidney disease) stage 4, GFR 15-29 ml/min SNOMED Code(s): 760949196 Code(s): N18.4 - CHRONIC KIDNEY DISEASE, STAGE 4 (SEVERE) Status: Chronic Current Visit: Yes (6) Hyponatremia SNOMED Code(s): 10136980 Code(s): E87.1 - HYPO-OSMOLALITY AND HYPONATREMIA Status: Acute Priority : High Current Visit: Yes (7) Hyperlipidemia SNOMED Code(s): 38329913 Code(s): E78.5 - HYPERLIPIDEMIA, UNSPECIFIED Status: Chronic Current Visit: Yes (8) Peripheral neuropathy SNOMED Code(s): 378286721 Code(s): G62.9 - POLYNEUROPATHY, UNSPECIFIED Status: Chronic Current Visit: Yes (9) Hypothyroidism SNOMED Code(s): 46832893 Code(s): E03.9 - HYPOTHYROIDISM, UNSPECIFIED Status: Chronic Current Visit: Yes (10) Hypotension SNOMED Code(s): 78725264 Code(s): I95.9 - HYPOTENSION, UNSPECIFIED Status: Acute Priority: Medium Current Visit: Yes - Problem List Review Problem List Initiated/Reviewed/Updated: Yes - My Orders Last 24 Hours: My Active Orders 01/02/17 11:45 Sodium Chloride 0.9% [Normal Saline] 500 ml IV ASDIRECTED - Plan Plan:: Assessment and plan Sepsis, source of infection is possibly urinary tract Elevated WBC and rapid heart rate He received IV infusion of NS, total of 2 L -blood cx is still negative -Continue levaquin IV -Awaiting to hear back from [facility] for [facility]. [facility] staff stated they expect to report come today or tomorrow but they are close tomorrow. We informed them to let us know as soon as they get any results. -Urine culture was collected here on 12/31/16 after receiving Levaquin, now reporting gram-negative rods. Awaiting ID and sensitivity UTI complicated -Urine culture was collected here on 12/31/16 after receiving Levaquin, now reporting gram-negative rods. Awaiting ID and sensitivity -Awaiting to hear back from [facility] for urine culture which was collected prior to starting antibiotics Continue Levaquin If any unusual bacteria reported in the urine or urine is not clearing then may consider CT of abdomen and pelvis Hyponatremia -Improving treat sepsis Hypotension Blood pressure was as low as 74/35 last night We will give 500 mL of normal saline at 100 mL per hour Monitor blood pressure Elevated BNP Patient is not short of breath and does not have lower extremity edema Will recheck again in the morning Lung mass versus nodule CT chest reported soft tissue solid nodule in left upper lobe measuring 3.5 x 3.2 x 2.5 cm. I discussed with patient and his daughter Radha the above findings and the need to follow up with primary care provider's office as soon as possible after discharge to to arrange for lung biopsy to rule out cancer. Generalized weakness PT adn OP eval and treamtment Diabetes mellitus type 2 hold glipizide and metformin due to kidney disease continue pioglitazone Levemir was increased from 25 units to 28 units twice a day -sliding scale insulin, high dose protocol Essential Hypertension Continue lisinopril Chronic kidney disease creatinine at baseline avoid nephrotoxic meds Hypothyroidism continue lenvothyroxin Hyperlipidemia continue simvastatin Heparin for DVT prophylaxis He is full code Consider home health and patient gets discharged. At this time he still needs acute inpatient care.
[2017-01-02] MEDS: Levofloxacin/Dextrose 5%-Water 500 MG in Premix Bag 1 BAG IV SCH (16:05)
[2017-01-02] MEDS: Insulin Detemir 100 Units/ML 3 ML Pen SUBCUT SCH (21:34)
[2017-01-02] MEDS: Simvastatin 10 MG Tab PO SCH (21:35)
[2017-01-03 07:16] VITALS: BP 104/46
--- NOTE | 2017-01-03 08:43 | PCM.DCSUM1 ---
Discharge Summary - Hospital Course Free Text/Narrative:: This 81 Y/O Male admitted to Medical floor for UTI and was treated with IV Levofloxacin, His urine culture came back as: >1000, 000 CFU/ml and susceptible to Levofloxacin. He also had a CT of chest for the lung nodule shown in X-ray done at [facility], confirmed the Lung Mass, whivch needs further evaluation. Pt is advised to follow with Dr. Kennedy at [facility] within a week for further evaluation of the lung Mass. He will go home on oral Levofloxacin 400 mg daily X 10 days course. HPI Initial Comments: This is a 81-year-old male with past medical history of diabetes mellitus type 2 , hyperlipidemia, chronic kidney disease stage IV, lower extremity edema, cataract, anemia of CKD/Chronic Illness, cardiomyopathy, essential hypertension , arthritis, diabetic peripheral neuropathy of the feet, hypothyroidism, presented for a direct admission from [facility] clinic in [place], [place]. Dr. Kennedy called Dr. Howell and reported that patient has been getting weak for the last 2 weeks with multiple clinic visits and in last visit was found to have Pyurea with WBC of 18,000, sodium 124. Chest x-ray at [facility] clinic reported nodule versus mass in the left upper lobe. UA on 12/30/69: Large urine blood, large leukocyte esterase. CT chest was done at [facility] showed a lung Mass and that needs to be worked up as out pt. Advised pt to Follow with Dr. Kennedy at [facility] for further evaluation of the Lung Mass - Discharge Data Discharge Date: 01/03/17 Discharge Disposition: Home, Self-Care 01 Condition: Good - Discharge Diagnosis/Problem(s) (1) Complicated UTI (urinary tract infection) SNOMED Code(s): 34489735 ICD Code: N39.0 - URINARY TRACT INFECTION, SITE NOT SPECIFIED Status: Acute Priority: High Current Visit: Yes (2) Hyponatremia SNOMED Code(s): 01335682 ICD Code: E87.1 - HYPO-OSMOLALITY AND HYPONATREMIA Status: Acute Priority : High Current Visit: Yes (3) Hypotension SNOMED Code(s): 55684179 ICD Code: I95.9 - HYPOTENSION, UNSPECIFIED Status: Acute Priority: Medium Current Visit: Yes (4) CKD (chronic kidney disease) stage 4, GFR 15-29 ml/min SNOMED Code(s): 174094097 ICD Code: N18.4 - CHRONIC KIDNEY DISEASE, STAGE 4 (SEVERE) Status: Chronic Current Visit: Yes (5) Diabetes mellitus type 2 in obese SNOMED Code(s): 03353066 ICD Code: E11.69 - TYPE 2 DIABETES MELLITUS WITH OTHER SPECIFIED COMPLICATION ; E66.9 - OBESITY, UNSPECIFIED Status: Chronic Current Visit: Yes (6) HTN (hypertension) SNOMED Code(s): 60802237 ICD Code: I10 - ESSENTIAL (PRIMARY) HYPERTENSION Status: Chronic Current Visit: Yes - Patient Summary/Data Consults: Consultations 12/30/16 14:41 OT Evaluation and Treatment [CONS] Routine PT Evaluation and Treatment [CONS] Routine - Patient Instructions Diet: Diabetic Diet Activity: As Tolerated Driving: May Drive Today Showering/Bathing: May Shower Notify Provider of: Fever, Increased Pain Other/Special Instructions: This 81 Y/O Male admitted to Medical floor for UTI and was treated with IV Levofloxacin, His urine culture came back as: >1000, 000 CFU/ml and susceptible to Levofloxacin. He also had a CT of chest for the lung nodule shown in X-ray done at [facility], confirmed the Lung Mass, whivch needs further evaluation. Pt is advised to follow with Dr. Kennedy at [facility] within a week for further evaluation of the lung Mass. He will go home on oral Levofloxacin 400 mg daily X 10 days course. He is advised to follow up with Nephrology clinic on Thursday, Jan 30, 2017 at 12:40 PM - Discharge Plan Prescriptions/Med Rec: Levofloxacin 500 mg PO DAILY 10 Days #10 tablet Home Medications: Home Meds Aspirin [Ecotrin] 81 mg PO DAILY 06/07/13 [History] Pioglitazone [Actos] 30 mg PO DAILY 06/07/13 [History] Simvastatin [Zocor] 20 mg PO BEDTIME 06/07/13 [History] Diclofenac Sodium [Voltaren 1% Gel] 2 gm TOP QID 12/30/16 [History] Fenofibric Acid (Choline) [Fenofibric Acid] 45 mg PO DAILY 12/30/16 [History] Insulin Detemir [Levemir] 25 unit SUBCUT BEDTIME 12/30/16 [History] Lisinopril 10 mg PO DAILY 12/30/16 [History] glipiZIDE [Glucotrol XL] 5 mg PO DAILY 12/30/16 [History] Levofloxacin 500 mg PO DAILY 10 Days #10 tablet 01/03/17 [Rx] - Discharge Summary/Plan Comment Discharge Summary/Plan Comment: This is a 81 Y/O pleasant male admitted with complicated UTI and CT scan of the chest showed lung mass and that needs to be worked up as out pt. Pt will be going home today and will be followed by PMD ( Dr. Kennedy), He is advised to See Dr. Kennedy within a week Assessment and plan Sepsis, source of infection is possibly urinary tract Elevated WBC and rapid heart rate He received IV infusion of NS, total of 2 L -blood cx is still negative, Urine culture showed Proteus Mirabilis -Encourage oral intake of Fluids UTI complicated -Urine culture was collected here on 12/31/16 after receiving Levaquin, now reporting gram-negative rods. and final Culture report: Proteus Mirabilis and susceptible to Levaquine -Will go home with oral Levaquine X 10 days course Hyponatremia: Resolved Hypotension: BP improved with resolution of UTI and IV fluids Lung mass versus nodule CT chest reported soft tissue solid nodule in left upper lobe measuring 3.5 x 3.2 x 2.5 cm. This was discussed with patient and his daughter Radha by Dr. Howell and it he needs to follow up with primary care provider's office as soon as possible after discharge to to arrange for lung biopsy to rule out cancer. Diabetes mellitus type 2 - hold metformin due to kidney disease - continue pioglitazone and Glipizide - Continue Levemir at 28 units twice a day ( increased from 25 units 2 times a day) Essential Hypertension Continue lisinopril Chronic kidney disease, Stage III creatinine at baseline 1.8-2.0 mg/dl avoid nephrotoxic meds and advise to follow with [facility] Hypothyroidism continue lenvothyroxin Hyperlipidemia continue simvastatin Disposition: He will be going home today and will follow with PMD within a week if possible in 2-3 days - General Info Date of Service: 01/03/17 Admission Dx/Problem (Free Text: Admission Diagnosis/Problem Admission Diagnosis/Problem UTI, Urinary tract infection Subjective Update: Patient stated that he is feeling good today. He has no new complaints. He denies fever, chills, nausea, vomiting, shortness breath, chest pain, abdominal pain, dysuria, urinary frequency, dizzyness, lightheadedness Functional Status: Reports: Pain Controlled, Tolerating Diet, Ambulating, Urinating - Review of Systems General: Reports: Appetite (good). Denies: Fever, Malaise, Chills HEENT: Denies: Headaches, Sinus Congestion, Sore Throat, Visual Changes Pulmonary: Denies: Shortness of Breath, Cough, Sputum, Wheezing Cardiovascular: Denies: Chest Pain, Dyspnea on Exertion, Lightheadedness Gastrointestinal: Denies: Abdominal Pain, Diarrhea, Nausea, Vomiting Genitourinary: Denies: Dysuria, Burning, Urgency, Flank Pain Musculoskeletal: Denies: Neck Pain, Hand Pain, Foot Pain, Joint Pain Skin: Denies: Cyanosis, Jaundice, Bruising, Pruritis, Rash Neurological: Denies: Headache, Tingling, Tremors Psychiatric: Reports: No Symptoms - Patient Data Vitals - Most Recent: Last Vital Signs Temp 36.3 C 01/03/17 07:00 Pulse 76 01/03/17 07:00 Resp 20 01/03/17 07:00 BP 104/46 L 01/03/17 07:00 Pulse Ox 99 01/03/17 07:00 Weight - Most Recent: 91.263 kg I&O - Last 24 hours: Intake & Output 01/02/17 01/03/17 01/03/17 22:59 06:59 14:59 Intake Total 1234 250 Balance 1234 250 Lab Results - Last 24 hrs: Laboratory Results - last 24 hr 01/02/17 01/02/17 01/02/17 Range/Units 10:43 16:48 20:51 WBC (5.0-10.0) 10^3/uL RBC (4.6-6.2) 10^6/uL Hgb (14.0-18.0) g/dL Hct (40.0-54.0) % MCV (80-100) fL MCH (27.0-34.0) pg MCHC (33.0-35.0) g/dL Plt Count (150-450) 10^3/uL Neut % (Auto) (42.2-75.2) % Lymph % (Auto) (20.5-50.1) % [place] % (Auto) (2-8) % Eos % (Auto) (1.0-3.0) % Baso % (Auto) (0.0-1.0) % Sodium (135-145) mmol/L Potassium (3.6-5.0) mmol/L Chloride (101-111) mmol/L Carbon Dioxide (21.0-31.0) mmol/L Anion Gap BUN (7-18) mg/dL Creatinine (0.6-1.3) mg/dL Est Cr Clr Drug Dosing mL/min Estimated GFR (MDRD) Glucose (74-105) mg/dL POC Glucose 296 H 208 H 156 H (83-110) mg/dl Calcium (8.4-10.2) mg/dl C-Reactive Protein (0.0-1.3) mg/dL B-Natriuretic Peptide (0-100) pg/ml 01/03/17 01/03/17 01/03/17 Range/Units 06:00 06:00 06:00 WBC 10.6 H (5.0-10.0) 10^3/uL RBC 3.83 L (4.6-6.2) 10^6/uL Hgb 10.9 L (14.0-18.0) g/dL Hct 34.3 L (40.0-54.0) % MCV 89.6 (80-100) fL MCH 28.5 (27.0-34.0) pg MCHC 31.8 L (33.0-35.0) g/dL Plt Count 390 (150-450) 10^3/uL Neut % (Auto) 65.9 (42.2-75.2) % Lymph % (Auto) 27.7 (20.5-50.1) % [place] % (Auto) 6.1 (2-8) % Eos % (Auto) 0.2 L (1.0-3.0) % Baso % (Auto) 0.1 (0.0-1.0) % Sodium 135 (135-145) mmol/L Potassium 4.2 (3.6-5.0) mmol/L Chloride 105 (101-111) mmol/L Carbon Dioxide 20.0 L (21.0-31.0) mmol/L Anion Gap 14.2 BUN 45 H (7-18) mg/dL Creatinine 1.9 H (0.6-1.3) mg/dL Est Cr Clr Drug Dosing 31.01 mL/min Estimated GFR (MDRD) 34 Glucose 135 H (74-105) mg/dL POC Glucose (83-110) mg/dl Calcium 8.2 L (8.4-10.2) mg/dl C-Reactive Protein 5.0 H (0.0-1.3) mg/dL B-Natriuretic Peptide 286 H (0-100) pg/ml 01/03/17 Range/Units 08:05 WBC (5.0-10.0) 10^3/uL RBC (4.6-6.2) 10^6/uL Hgb (14.0-18.0) g/dL Hct (40.0-54.0) % MCV (80-100) fL MCH (27.0-34.0) pg MCHC (33.0-35.0) g/dL Plt Count (150-450) 10^3/uL Neut % (Auto) (42.2-75.2) % Lymph % (Auto) (20.5-50.1) % [place] % (Auto) (2-8) % Eos % (Auto) (1.0-3.0) % Baso % (Auto) (0.0-1.0) % Sodium (135-145) mmol/L Potassium (3.6-5.0) mmol/L Chloride (101-111) mmol/L Carbon Dioxide (21.0-31.0) mmol/L Anion Gap BUN (7-18) mg/dL Creatinine (0.6-1.3) mg/dL Est Cr Clr Drug Dosing mL/min Estimated GFR (MDRD) Glucose (74-105) mg/dL POC Glucose 118 H (83-110) mg/dl Calcium (8.4-10.2) mg/dl C-Reactive Protein (0.0-1.3) mg/dL B-Natriuretic Peptide (0-100) pg/ml BETH Results - Last 24 hrs: Microbiology 12/31/16 13:10 Urine Culture - Final Urine, Voided Proteus Mirabilis 12/30/16 15:10 Aerobic Blood Culture - Preliminary Blood - Venous - Lab Draw NO GROWTH AFTER 3 DAYS Anaerobic Blood Culture - Preliminary NO GROWTH AFTER 3 DAYS 12/30/16 15:05 Aerobic Blood Culture - Preliminary Blood - Venous NO GROWTH AFTER 3 DAYS Anaerobic Blood Culture - Preliminary NO GROWTH AFTER 3 DAYS Med Orders - Current: Current Medications Acetaminophen (Tylenol) 650 mg PO Q4H PRN PRN Reason: Pain (Mild 1-3)/fever Aspirin (Halfprin) 81 mg PO DAILY [facility] Last Admin: 01/02/17 08:48 Dose: 81 mg Heparin Sodium (Porcine) (Heparin Sodium) 5,000 units SUBCUT BID [facility] Last Admin: 01/02/17 21:35 Dose: 5,000 units Levofloxacin/Dextrose 500 mg/ (Premix) 100 mls @ 100 mls/hr IV Q24H [facility] Last Infusion: 01/02/17 17:10 Dose: Infused Sodium Chloride (Normal Saline) 500 mls @ 100 mls/hr IV ASDIRECTED [facility] Last Infusion: 01/02/17 19:00 Dose: Infused Insulin Aspart (Novolog) 0 unit SUBCUT QIDACANDBED [facility] PRN Reason: Protocol Last Admin: 01/02/17 21:34 Dose: 3 units Insulin Detemir (Levemir) 28 unit SUBCUT BEDTIME [facility] Last Admin: 01/02/17 21:34 Dose: 28 units Lisinopril (Prinivil) 10 mg PO DAILY [facility] Last Admin: 01/02/17 08:48 Dose: 10 mg Ondansetron HCl (Zofran) 4 mg IVPUSH Q6H PRN PRN Reason: Nausea/Vomiting Pioglitazone HCl (Actos) 30 mg PO DAILY [facility] Last Admin: 01/02/17 08:47 Dose: 30 mg Polyethylene Glycol (Miralax) 17 gm PO DAILY PRN PRN Reason: Constipation Simvastatin (Zocor) 20 mg PO BEDTIME [facility] Last Admin: 01/02/17 21:35 Dose: 20 mg Sodium Chloride (Saline Flush) 10 ml FLUSH ASDIRECTED PRN PRN Reason: Keep Vein Open Last Admin: 01/01/17 12:29 Dose: 10 ml Discontinued Medications Sodium Chloride (Normal Saline) 1,000 mls @ 125 mls/hr IV ASDIRECTED [facility] Stop: 12/31/16 10:00 Last Infusion: 12/31/16 11:48 Dose: 125 mls/hr Insulin Detemir (Levemir) 25 unit SUBCUT BEDTIME [facility] Last Admin: 12/30/16 21:14 Dose: 25 units Non-Formulary Medication (Fenofibrate,Micronized [Fenofibrate]) 1 cap PO DAILY [facility] Last Admin: 12/31/16 13:45 Dose: Not Given Fenofibric Acid ( Choline) [Fenofibric Acid] 45 MgOwn Med 45 mg PO DAILY [facility] Last Admin: 12/31/16 14:11 Dose: 45 mg - Exam Quality Assessment: Reports: DVT Prophylaxis. Denies: Supplemental Oxygen, Urine Catheter General: Reports: Alert, Oriented, Cooperative, No Acute Distress HEENT: Reports: Pupils Equal, Pupils Reactive, Mucous Membr. Moist/[place] Neck: Reports: Supple, No JVD. Denies: Lymphadenopathy Lungs: Reports: Clear to Auscultation, Normal Respiratory Effort. Denies: Crackles, Wheezing Cardiovascular: Reports: Regular Rate, Regular Rhythm, Murmurs GI/Abdominal Exam: Normal Bowel Sounds, Soft, Non-Tender, No Distention. No: Guarding, Rebound (Male) Exam: Deferred Rectal (Males) Exam: Deferred Back Exam: Reports: Normal Inspection, Full Range of Motion Extremities: Normal Inspection, No Pedal Edema Skin: Reports: Warm, Dry, Intact Neurological: Reports: No New Focal Deficit Psy/Mental Status: Reports: Alert, Normal Affect, Normal Mood *Q Meaningful Use (DIS) - VTE *Q VTE Criteria *Q: - Stroke *Q Stroke Criteria *Q: - AMI *Q AMI Criteria *Q:
[2017-01-03] MEDS ORDERED: Levofloxacin 500 MG Tab PO ONE (09:56)
[2017-01-03] MEDS: Aspirin 81 MG Tab.EC PO SCH (10:53)
[2017-01-03] MEDS: Insulin Aspart 100 Units/ML 3 ML Pen SUBCUT SCH ×2 (10:54→12:45)
[2017-01-03] MEDS: Lisinopril 10 MG Tab PO SCH (10:55)
[2017-01-03] MEDS: Heparin Sodium 5,000 Units/ML Vial SUBCUT SCH (10:56)
== END 2017-01-03 14:00 | disposition home or self-care (01) | DRG 872 ==
LOC: DL.MS 14:41 → UNDOADMIN 14:57 → DL.MS 14:57
PROVIDERS: ADMIT Family Medicine; ATTEND Family Medicine
DX: A41.9 Sepsis, unspecified organism (principal); N39.0 Urinary tract infection, site not specified; N18.4 Chronic kidney disease, stage 4 (severe); E87.1 Hypo-osmolality and hyponatremia; E78.5 Hyperlipidemia, unspecified; I12.9 Hypertensive chronic kidney disease with stage 1 through stage 4 chronic kidney disease, or unspecified chronic kidney disease; E11.22 Type 2 diabetes mellitus with diabetic chronic kidney disease; J44.9 Chronic obstructive pulmonary disease, unspecified; Z87.891 Personal history of nicotine dependence; E03.9 Hypothyroidism, unspecified; Z79.82 Long term (current) use of aspirin; Z79.899 Other long term (current) drug therapy; D63.1 Anemia in chronic kidney disease; E11.42 Type 2 diabetes mellitus with diabetic polyneuropathy; M19.90 Unspecified osteoarthritis, unspecified site; E66.9 Obesity, unspecified; Z68.29 Body mass index [BMI] 29.0-29.9, adult; R53.1 Weakness; R60.0 Localized edema; R91.1 Solitary pulmonary nodule; Z79.84 Long term (current) use of oral hypoglycemic drugs; Z79.4 Long term (current) use of insulin
CPT/HCPCS: 36415; 71250; 80048; 80053; 82962; 83735; 83880; 84100; 85025; 86140; 87040; 87086; 87088; 87186; 97110-GO; 97162-GP; 97165-GO; 97530-GO; 97535-GO; A9270-GY; J1644; J1815-GY; J1956; J7030; J7040; J7050